=== PATIENT | male | born 1990 | race Caucasian/White ===

== ENCOUNTER 2017-04-14 09:01 | Emergency (ER) | payer MEDICAID, OTHER ==
[~2017-04-14] VITALS: Ht 182.9 cm; Wt 81.6 kg
[2017-04-14] MEDS ORDERED: IBUPROFEN 800 MG (MOTRIN) TAB PO STA (09:37)
[2017-04-14] MEDS ORDERED: DEPAKOTE (09:38)
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
--- NOTE | 2017-04-14 10:17 | Diagnostic Imaging Report ---
Left tibia and fibula 2 views. INDICATION: Pain after injury. FINDINGS: No fracture, dislocation, or radiopaque foreign body. The proximal and distal joints appear grossly unremarkable. IMPRESSION: Unremarkable exam. Dictated by: Dictated on workstation # [id number]
[2017-04-14 10:42] VITALS: BP 138/90
== END 2017-04-14 10:41 | disposition home or self-care (01) ==
LOC: ER 09:05
DX: S80.12XA Contusion of left lower leg, initial encounter (principal); G40.909 Epilepsy, unspecified, not intractable, without status epilepticus; F17.200 Nicotine dependence, unspecified, uncomplicated; Z90.49 Acquired absence of other specified parts of digestive tract; W23.1XXA Caught, crushed, jammed, or pinched between stationary objects, initial encounter
CPT/HCPCS: 73590; 99283